=== PATIENT | female | born 2000 | race Caucasian/White ===

== ENCOUNTER 2019-07-14 18:35 | Emergency (ER) | payer BC, SELFPAY | END 2019-07-14 19:10 | disposition home or self-care (01) | LOC: BURERS 18:35 | DX: J20.9 Acute bronchitis, unspecified (principal); F17.290 Nicotine dependence, other tobacco product, uncomplicated; F41.9 Anxiety disorder, unspecified; F32.9 Major depressive disorder, single episode, unspecified; Z79.899 Other long term (current) drug therapy | CPT/HCPCS: 99283 ==